=== PATIENT | female | born 1970 | race Caucasian/White ===

== ENCOUNTER 2024-09-20 12:59 | Emergency (ER) | payer OTHER ==
[~2024-09-20] VITALS: Ht 162.6 cm; Wt 59.0 kg
[2024-09-20] MEDS ORDERED: ACETAMINOPHEN 325 MG TABLET ONE (15:12)
[2024-09-20] MEDS: ACETAMINOPHEN 325 MG TABLET PO ONE (15:16)
[2024-09-20 15:48] VITALS: BP 132/68; TEMP 98; O2SAT 100
== END 2024-09-20 15:49 | disposition home or self-care (01) ==
LOC: ER 13:23
DX: M79.641 Pain in right hand (principal); Z90.49 Acquired absence of other specified parts of digestive tract; Z60.2 Problems related to living alone
CPT/HCPCS: 73130-TC